=== PATIENT | female | born 1960 | race Asian ===

== ENCOUNTER 2021-03-17 16:05 | Emergency (ER) | payer OTHER ==
[2021-03-17 16:44] VITALS: BMI 28.7
[2021-03-17 17:15] LABS: HEMATOCRIT 40.7 % (32.4-45.2); HEMOGLOBIN 14.2 GM/dl (10.7-15.3); MCH 32.7 pg (25.7-33.7); MEAN CELL VOLUME 93.3 fl (80-96); MEAN PLT VOLUME 8.5 fl (7.5-11.1); PLATELET COUNT 227 10^3/uL (134-434); RBC 4.36 M/mm3 (3.60-5.2); WHITE BLOOD COUNT 6.2 K/mm3 (4.0-10.8)
[2021-03-17] MEDS ORDERED: ACETAMINOPHEN 1000 MG/100 ML VIAL (NON FORMULARY) IVPB ONE (17:16)
[2021-03-17] MEDS ORDERED: ACETAMINOPHEN INJECTION 100 ML IVPB ONE (17:20)
[2021-03-17 17:27] LABS: ALBUMIN 4.4 g/dl (3.4-5.0); ALK PHOS 70 U/L (45-117); ANION GAP 10 MMOL/L (8-16); CHLORIDE 106 mmol/L (98-107); CO2 23 mmol/L (21-32); CREATININE 0.8 mg/dl (0.55-1.3); GLUCOSE,RANDOM 119 mg/dl (74-106); SGOT/AST 36 U/L (15-37); SGPT/ALT 47 U/L (13-61); SODIUM 139 mmol/L (136-145); TOT PROT 7.1 g/dl (6.4-8.2)
[2021-03-17 17:41] LABS: PLATELET ESTIMATE ADEQUATE
[2021-03-17] MEDS ORDERED: SODIUM CHLORIDE 0.9% 500 ML INFUS.BAG IV ONE (18:27)
[2021-03-17] MEDS ORDERED: morphine CARPU-JECT 2 MG/1 ML DISP.SYRIN IVPUSH ONE (18:51)
[2021-03-17] MEDS ORDERED: morphine SULFATE 4 MG/ML VIAL ONE (18:52)
[2021-03-17 20:12] VITALS: BP 128/76; PULSE 79; TEMP 98.1
== END 2021-03-17 20:15 | disposition home or self-care (01) ==
LOC: FER 16:05
PROC: 3E0333Z Introduction of Anti-inflammatory into Peripheral Vein, Percutaneous Approach (ICD-10-PCS; principal; 2021-03-17)
PROC: 3E033NZ Introduction of Analgesics, Hypnotics, Sedatives into Peripheral Vein, Percutaneous Approach (ICD-10-PCS; 2021-03-17)
DX: N20.0 Calculus of kidney (principal)
CPT/HCPCS: 36415; 74177-TC; 80053; 81003; 81015; 82550; 82553; 84484; 85025; 87086; 87186; 93005; 99285-25; J0131; Q9967